=== PATIENT | female | born 1950 | race Caucasian/White ===

== ENCOUNTER 2020-02-06 12:57 | Emergency (ER) | payer MEDICARE ==
[~2020-02-06] VITALS: Ht 177.8 cm; Wt 100.0 kg
--- NOTE | 2020-02-06 13:48 | NUR ---
helped pt with a bedpan. she urinated well. no issues.
[2020-02-06] MEDS ORDERED: IBUP-1984 PO (14:29)
[2020-02-06 15:00] VITALS: BP 104/50
--- NOTE | 2020-02-06 15:12 | NUR ---
talked with pt's Don about getting the pt home. he states he would like to have someone help transport her home. gained his phone number and Tay has been talking with [facility] and they said that they can pick her up at 5pm
== END 2020-02-06 16:36 | disposition home or self-care (01) ==
LOC: ER 12:57
DX: M25.571 Pain in right ankle and joints of right foot (principal); Z86.73 Personal history of transient ischemic attack (TIA), and cerebral infarction without residual deficits; Z88.1 Allergy status to other antibiotic agents; Z79.899 Other long term (current) drug therapy
CPT/HCPCS: 73610; 99283